=== PATIENT | male | born 1980 | race Caucasian/White ===

== ENCOUNTER 2023-04-27 13:13 | Emergency (ER) | payer OTHER, SELFPAY ==
--- NOTE | ~2023-04-27 | XR_ITS ---
EXAMINATION: XR FOREARM, RIGHT CLINICAL INFORMATION: Pain, hematoma COMPARISON: None available. TECHNIQUE: AP and lateral views of the right forearm were obtained. FINDINGS: The bones and soft tissues are normal. No fracture. Imaged portions of the elbow and wrist are unremarkable. XR/XR forearm RT 2V IMPRESSION: Normal right forearm.
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
[2023-04-27 13:19] VITALS: BP 139/79; PULSE 78; RESP 16; TEMP 36.2; O2SAT 96; BMI 24.4
[2023-04-27 14:20] VITALS: BP 132/70; PULSE 67; RESP 17; O2SAT 97
== END 2023-04-27 14:22 | disposition home or self-care (01) ==
PROVIDERS: Emergency Provider Emergency Medicine
DX: S50.11XA Contusion of right forearm, initial encounter (principal); M79.631 Pain in right forearm; V49.3XXA Car occupant (driver) (passenger) injured in unspecified nontraffic accident, initial encounter; Y93.9 Activity, unspecified; Y92.410 Unspecified street and highway as the place of occurrence of the external cause; Y99.9 Unspecified external cause status
CPT/HCPCS: 73090; 99283; 99284

== ENCOUNTER → 2023-04-28 07:36 | Outpatient (BNVA) | payer OTHER, SELFPAY | PROVIDERS: Visit Provider Internal Medicine | DX: S50.11XA Contusion of right forearm, initial encounter (principal); S43.401A Unspecified sprain of right shoulder joint, initial encounter; V89.0XXA Person injured in unspecified motor-vehicle accident, nontraffic, initial encounter | CPT/HCPCS: 99203 ==

== ENCOUNTER → 2023-05-02 09:05 | Outpatient (BNVA) | payer OTHER, SELFPAY | PROVIDERS: Visit Provider Physician Assistant Medical | DX: S50.11XA Contusion of right forearm, initial encounter (principal); S43.401A Unspecified sprain of right shoulder joint, initial encounter; V89.0XXA Person injured in unspecified motor-vehicle accident, nontraffic, initial encounter | CPT/HCPCS: 99213 ==

== ENCOUNTER → 2023-05-08 12:57 | Outpatient (BNVA) | payer OTHER, SELFPAY | PROVIDERS: PCP Family Medicine; Visit Provider Physician Assistant Medical | DX: S50.11XD Contusion of right forearm, subsequent encounter (principal); S43.401D Unspecified sprain of right shoulder joint, subsequent encounter; V89.0XXD Person injured in unspecified motor-vehicle accident, nontraffic, subsequent encounter | CPT/HCPCS: 99213 ==

== ENCOUNTER → 2023-05-15 12:59 | Outpatient (BNVA) | payer OTHER, SELFPAY | PROVIDERS: PCP Family Medicine; Visit Provider Physician Assistant Medical | DX: S50.11XD Contusion of right forearm, subsequent encounter (principal); S46.911D Strain of unspecified muscle, fascia and tendon at shoulder and upper arm level, right arm, subsequent encounter; V89.0XXD Person injured in unspecified motor-vehicle accident, nontraffic, subsequent encounter | CPT/HCPCS: 99213 ==

== ENCOUNTER → 2023-05-23 10:37 | Outpatient (BNVA) | payer OTHER, SELFPAY | PROVIDERS: PCP Family Medicine; Visit Provider Physician Assistant Medical | DX: S50.11XD Contusion of right forearm, subsequent encounter (principal); S46.911D Strain of unspecified muscle, fascia and tendon at shoulder and upper arm level, right arm, subsequent encounter; V89.0XXD Person injured in unspecified motor-vehicle accident, nontraffic, subsequent encounter | CPT/HCPCS: 99213 ==

== ENCOUNTER 2023-06-02 09:00 | Outpatient (RCR) | payer OTHER, SELFPAY ==
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
--- NOTE | 2023-06-30 16:21 | MHC.PT.DC ---
[facility] [place] [facility] [place] [facility] [place] [facility] [address] Adam Katz [address] [phone] F: [phone] F: [phone] F: [phone] F: [phone] Physical Therapy Discharge Report Diagnosis: R SHOULDER SPRAIN Date of Surgery: NA Date of Evaluation: 05/14/23 Date of Discharge: 06/30/23 Treatments to Date: 6 Cancellations to Date: No Shows to Date: Discharge Status: Improved Function Independent with HEP Patient Elected to Stop Discharge Summary: Pt SEEN FOR INIT EVAL AND 5 FU VISITS. LAST SEEN ON 06/02/23 BY TOMAS HANSON PT,DPT. PER ASSESSMENT FROM THAT NOTE Challenged with quadriped position. Pt expressing sx posterior RTC insertion, expresses he is feeling improvement, still sore in the back posterior RTC insertion at times. Weak triceps and scapular retractors. NO FURTHER APPTS SCHEDULED (?) HAD WC FU ON 06/06 WITH POSSIBLE RTW (?). WILL DC CHART AT THIS TIME SINCE IT HAS BEEN 4WKS SINCE LAST VISIT CHALLENGED WITH WT, CLOSED CHAIN AND OVERHEAD WORK. SHOULD BE ABLE TO RTW AT NEXT WC APPT (06/06) Electronically signed by: ZACK CRUZ PT Please sign and return to therapist. Thank you for your referral.
== END 2023-06-30 16:21 | disposition home or self-care (01) ==
LOC: HO.PTWFD 09:00
PROVIDERS: PCP Family Medicine; Visit Provider Physician Assistant Medical
DX: S43.401D Unspecified sprain of right shoulder joint, subsequent encounter (principal)
CPT/HCPCS: 97110; 97140; 97161; 97535

== ENCOUNTER → 2023-06-06 10:36 | Outpatient (BNVA) | payer OTHER, SELFPAY | PROVIDERS: PCP Family Medicine; Visit Provider Physician Assistant Medical | DX: S50.11XD Contusion of right forearm, subsequent encounter (principal); S43.401D Unspecified sprain of right shoulder joint, subsequent encounter; V89.0XXD Person injured in unspecified motor-vehicle accident, nontraffic, subsequent encounter | CPT/HCPCS: 99213 ==

== ENCOUNTER → 2023-10-28 15:07 | Outpatient (BNVA) | payer OTHER, SELFPAY | PROVIDERS: PCP Family Medicine; Visit Provider Physician Assistant Medical | DX: S62.600A Fracture of unspecified phalanx of right index finger, initial encounter for closed fracture (principal); S92.152A Displaced avulsion fracture (chip fracture) of left talus, initial encounter for closed fracture; Y35.891A Legal intervention involving other specified means, law enforcement official injured, initial encounter | CPT/HCPCS: 29130; 29515; 99203 ==

== ENCOUNTER → 2023-10-31 12:46 | Outpatient (BNVA) | payer OTHER, SELFPAY | PROVIDERS: PCP Family Medicine; Visit Provider Physician Assistant | DX: S62.600A Fracture of unspecified phalanx of right index finger, initial encounter for closed fracture (principal); S92.152A Displaced avulsion fracture (chip fracture) of left talus, initial encounter for closed fracture; X58.XXXA Exposure to other specified factors, initial encounter | CPT/HCPCS: 99213 ==

== ENCOUNTER 2023-11-12 08:15 | Outpatient (AMB) | payer OTHER, SELFPAY ==
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
[2023-11-12 08:23] VITALS: BMI 24.4
== END 2023-11-12 09:11 | disposition home or self-care (01) ==
PROVIDERS: PCP Family Medicine; Visit Provider Physician Assistant
DX: S62.600A Fracture of unspecified phalanx of right index finger, initial encounter for closed fracture (principal)
CPT/HCPCS: 99203

== ENCOUNTER → 2023-11-12 08:15 | Outpatient (BNVA) | payer OTHER, SELFPAY | PROVIDERS: PCP Family Medicine; Visit Provider Physician Assistant | DX: S62.600A Fracture of unspecified phalanx of right index finger, initial encounter for closed fracture (principal) | CPT/HCPCS: 99202 ==

== ENCOUNTER 2023-11-14 10:38 | Outpatient (REF) | payer OTHER, SELFPAY ==
--- NOTE | ~2023-11-14 | XR_ITS ---
EXAMINATION: XR HAND, RIGHT CLINICAL INFORMATION: Pain in the right hand COMPARISON: X-ray of the index finger 10/28/2023. TECHNIQUE: PA, lateral, and oblique views of the right hand. FINDINGS: Unchanged minimally displaced intra-articular fracture of the base of the middle phalanx of the PIP joint of the index finger The bones and soft tissues are otherwise normal. No fracture. Alignment is anatomic. Joint spaces are maintained. No erosions or soft tissue calcifications. XR/XR hand RT min 3V IMPRESSION: Unchanged minimally displaced intra-articular fracture of the base of the middle phalanx of the index finger.
== END 2023-11-14 10:39 | disposition home or self-care (01) ==
LOC: HO.HOSX 10:38
PROVIDERS: Visit Provider Physician Assistant
DX: M79.641 Pain in right hand (principal)
CPT/HCPCS: 73130

== ENCOUNTER 2023-11-26 10:11 | Outpatient (AMB) | payer OTHER, SELFPAY ==
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
== END 2023-11-26 10:35 | disposition home or self-care (01) ==
PROVIDERS: PCP Family Medicine; Visit Provider Physician Assistant
DX: S62.600A Fracture of unspecified phalanx of right index finger, initial encounter for closed fracture (principal)
CPT/HCPCS: 99213

== ENCOUNTER → 2023-11-26 10:11 | Outpatient (BNVA) | payer OTHER, SELFPAY | PROVIDERS: PCP Family Medicine; Visit Provider Physician Assistant | DX: S62.600D Fracture of unspecified phalanx of right index finger, subsequent encounter for fracture with routine healing (principal) | CPT/HCPCS: 99212 ==

== ENCOUNTER 2023-12-23 09:41 | Outpatient (AMB) | payer OTHER, SELFPAY ==
--- NOTE | 2023-12-23 09:55 | MHC.OFFVIS ---
Intake Vital Signs 12/23/23 09:57 Height 5 ft 11 in Weight 175 lb BMI 24.4 Intake Visit Reasons: O/V RT index finger ROM check Intake Note: Preston a 43 year old male presents today for a ROM check of right index finger fx s/p work injury, DOI 10/28/23. States he is still working on his ROM and has his last O.T visit in a few days. Allergies No Known Allergies Allergy (Verified 12/23/23 09:56) HPI O/V RT index finger ROM check HPI Details Preston is a 43 year old right hand dominant man who is following up for his right index finger middle phalanx fracture at the volar radial base of the middle phalanx. DOI: 10/28/23. 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 He says he is doing well and has been attending OT as well as performing at-home exercises. He has some pain when touching his finger or when using it for some activities, such as changing his bedding. He says he was wearing a finger splint for ~2 weeks following his DOI. He has an OT appointment for later this afternoon, he says this is his last appointment. He is seen today using crutches. He says with this injury he fractures two ankle bones & tore a tendon. 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 Review of Systems Const All systems reviewed & are unremarkable except as noted in HPI and below Physical Exam Vital Signs: BMI result Body Mass Index 24.4 Const General: cooperative, healthy appearing and no acute distress Orientation/consciousness: patient oriented x3 HEENT Head: Yes normocephalic and Yes atraumatic Eyes EOM: EOMs intact bilaterally Resp Effort & Inspection: normal respiratory effort and able to speak in complete sentences Cardio Jugular venous distension: no JVD Skin General skin exam: turgor normal Rashes: no rashes Neuro General: patient oriented x3 Extrem Other: Evaluation of Right Upper Extremity: The patient is alert, oriented, and in no acute distress Regarding the right index finger he no longer has any swelling or ecchymosis. He has full active extension of the digit, though tends to not hold it extended against resistance with full strength. When flexing to a fist he demonstrates that he initially can only get the fingertips to perhaps 2 cm from his palm. With encouragement he was able to actively bring the tip of his index finger to his palm. When palpating his finger he tended to flinch a pull away including when I was palpating more proximally over the distal aspect of the proximal phalanx. The fracture is more distally over the base of the middle phalanx. The PIP joint is stable on exam. No swelling and active full range of motion of the PIP joint Radiographs: 3 views of the right hand, with attention to the index finger, were taken and viewed by me today in clinic. They show a right index finger middle phalanx fracture, volar radial, non-displaced with satisfactory fracture alignment and good evidence of interval bony healing. Psych Appearance: grossly normal Affect: normal affect Attitude: cooperative Office Procedures Fracture Care Details: Fracture care if it was not already build for this fracture right index finger middle phalanx [place] [id number] Fracture Billing Code: Fracture Billing Code Assessment & Plan Assessment & Plan (1) Fracture of middle phalanx of right index finger: Code(s): S62.620A - Displaced fracture of middle phalanx of right index finger, initial encounter for closed fracture Plan Assessment & Plan: 1. Right index finger middle phalanx fracture, volar radial, non-displaced DOI: 10/28/23 This is a work-related injury I educated him about this condition This fracture has gone on to heal well. 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 He will perform ROM exercises at home, and work on desensitization of his finger He should begin to use his hand for more normal activities. He is to avoid any impact type activities, including discharging a firearm. he will work on increasing his weight limit, as tolerated. 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 In regards to his hand, he was given a note to return to work on light duty, with a 10lb weight limit. He may return to calisthenic exercises at this time, no discharging of firearms until his next appointment. He is currently out of work due to an ankle fracture as well, which is being managed by [facility]. RTW status to be determined. He will follow up in 4 weeks, anticipate return to full duty at that time. Scribed for Amber Melvin MD by Trell Gotti, bacteriologist medical, on 12/23/23 at 10:35 AM, EST. Orders: Orders XR hand RT min 3V Today M79.641 - Pain in right hand OT Evaluation and Treatment Today S62.620A - Displaced fracture of middle phalanx of right index finger, initial encounter for closed fracture Coding Level of Care Code Global (97131) Diagnoses Fracture of middle phalanx of right index finger S62.620A CPT Codes Fracture Care - Fracture Billing Code: Fracture Billing Code ([id number])
[2023-12-23 09:57] VITALS: BMI 24.4
== END 2023-12-23 11:25 | disposition home or self-care (01) ==
PROVIDERS: PCP Family Medicine; Visit Provider Orthopaedic Surgery
DX: S62.620A Displaced fracture of middle phalanx of right index finger, initial encounter for closed fracture (principal)
CPT/HCPCS: 99213

== ENCOUNTER 2023-12-23 09:41 | Outpatient (REF) | payer OTHER, SELFPAY ==
--- NOTE | ~2023-12-23 | XR_ITS ---
EXAMINATION: XR HAND, RIGHT CLINICAL INFORMATION: Pain in second digit right hand, attention index finger PIP. COMPARISON: 11/12/2023 right hand, 10/28/2023 right finger. TECHNIQUE: PA, lateral, and oblique views of the right hand. FINDINGS: Redemonstration of minimally displaced intra-articular fracture of the base of the middle phalanx of the PIP joint of the second digit. Moderate associated soft tissue swelling. Mild degenerative changes in the first carpometacarpal joint with joint space narrowing and hypertrophic change. XR/XR hand RT min 3V IMPRESSION: Redemonstration of minimally displaced intra-articular fracture of the base of the middle phalanx of the PIP joint of the second digit.
== END 2023-12-23 09:42 | disposition home or self-care (01) ==
LOC: HO.HOSX 09:41
PROVIDERS: PCP Family Medicine; Visit Provider Orthopaedic Surgery
DX: S62.620A Displaced fracture of middle phalanx of right index finger, initial encounter for closed fracture (principal)
CPT/HCPCS: 73130; 99212

== ENCOUNTER 2024-01-19 13:00 | Outpatient (RCR) | payer OTHER, BC, SELFPAY ==
--- NOTE | 2023-11-20 07:54 | MHC.OT.EP ---
[address] [phone] Occupational Therapy Plan of Care Patient Name: Preston Montenegro Date of Evaluation: 11/19/23 Diagnosis: R IF MIDDLE PHALANX FRACTURE Pain Location: R IF, PIPj DORSAL ASPECT 3/10 AT REST 4-5/10 WITH USE Pain Score: 3 Pain Scale Used: Numeric (0 - 10) Aggravating Factors: EARLY AM UPON WAKING (STIFF), HOLDING COFFEE CUP (ITEMS >3 POUNDS) Alleviating Factors: TAKING IBUPROFEN, DID NOT NOTICE RELIEF WITH HEAT/ICE Assessment: MR MONTENEGRO IS 3 WEEKS, 1 DAY SINCE HE SUSTAINED A VOLAR PLATE INJURY, FRACTURE OF THE MIDDLE PHALANX OF HIS RIGHT INDEX FINGER. HE IS RIGHT HAND DOMINANT AND IS HAVING DIFFICULTIES PERFORMING IADLs AND HOLDING ITEMS. 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 A 57% LIMITATION IS REPORTED PER THE QUICK DASH ASSESSMENT. ONGOING SKILLED OT IS WARRANTED TO ACHIEVE MAXIMUM FUNCTIONAL LEVEL AND ADDRESS WORK CONDITIONING TASKS WHEN APPROPRIATE. Frequency and Duration: The patient will be seen 2X/WEEK FOR 6 WEEKS Short Term Goals: IND HEP IND EDEMA MANAGEMENT STRATEGIES IND USE OF HEAT/ ICE IMPROVE COORDINATION IN R HAND TO FUNCTIONAL LEVEL PER FDT Mcc Goals: R HAND GRASP 40 POUNDS R PIPj TO 95 DEGREES; R DIPj TO 60 DEGREES PERFORM SIMULATED WORK RELATED TASKS WITH <2/10 PAIN QUICK DASH <30% Treatment Plan: Therapeutic Exercise Therapeutic Activity Home Exercise Program Splinting Neuro Re-ed Patient Education Desensitization/Sensory Re-ed Edema Control ADL Training Ultrasound NMES Iontophoresis Paraffin Fluidotherapy MHP Cold Packs Joint Mobilization Soft Tissue Mobilization Kinesiotaping Electronically Signed By: DAPHNE SALMON OTR/L Please Sign and return to therapist. Thank you once again for your referral.
--- NOTE | 2023-12-19 08:01 | MHC.OT.OP ---
[address] [phone] F: [phone] Occupational Therapy Progress Note Patient Name: Preston Montenegro Diagnosis: R IF MIDDLE PHALANX FRACTURE Date of Evaluation: 11/19/23 Treatments to Date: 6 Cancellations to Date: 2 No Shows to Date: 0 Subjective: I CAUGHT ON THE SHEET STRIPPING THE BED. THAT HURT Pain Score: 3 Pain Location: R PIPj OF IF Objective Measures: CIRCUMFERENCE OF IF AT PIPJ: R 6.5 CM, L 6.4 CM IF FLEXION: 90 PIP, 60 DIP FUNCTIONAL DEXTERITY TEST: R 21 SECONDS (FUNCTIONAL) 9 HOLE PEG TEST: 24 SECONDS (FUNCTIONAL) R GRASP 15 POUNDS R LATERAL PINCH 6 POUNDS, 2 PT PINCH 4 POUNDS, 3 PT PINCH 9 POUNDS Status: Progressing Assessment: MR MONTENEGRO HAS SHOWN IMPROVEMENTS IN RIGHT DOMINANT HAND INDEX FINGER S/P MP FX. HE IS SHOWING IMPROVEMENTS IN PAIN, EDEMA, ROM AND DEXTERITY ARE WFL. GOALS MET FOR EDEMA, PAIN , ROM, DEXTERITY. STRENGTH AND LIGHT FUNCTIONAL ACTIVITIES. BEGINNING TO PROGRESS LIGHT RESISTANCE EXERCISE RESPECTING PRECAUTIONS FOR HEALING MP FRACTURE. Pt TO BEGIN TO TRANSITION TO A HOME BASED PROGRAM IN NEXT WEEK SESSIONS. STILL REMAINS OUT OF WORK HE ALSO HAS AN ANKLE INJURY (PT EVAL SCHEDULED FOR 01/05/24). Short Term Goals: IND HEP (MET) IND EDEMA MANAGEMENT STRATEGIES (MET) IND USE OF HEAT/ ICE (MET) IMPROVE COORDINATION IN R HAND TO FUNCTIONAL LEVEL PER FDT (MET) Environmental Air Specialist Goals: R HAND GRASP 40 POUNDS R PIPj TO 95 DEGREES; R DIPj TO 60 DEGREES PERFORM SIMULATED WORK RELATED TASKS WITH <2/10 PAIN QUICK DASH <30% Frequency and Duration: The patient will be seen 2X/WEEK FOR 1 WEEK Treatment Plan: Therapeutic Exercise Therapeutic Activity Home Exercise Program Neuro Re-ed Patient Education Desensitization/Sensory Re-ed ADL Training Ultrasound Paraffin Fluidotherapy MHP Cold Packs Joint Mobilization Soft Tissue Mobilization Kinesiotaping Electronically Signed By: DAPHNE SALMON OTR/L Reviewed/agree with student documentation: N/A Therapist:
--- NOTE | 2024-01-19 13:30 | MHC.OT.DC ---
[address] [phone] F: [phone] Occupational Therapy Discharge Note Patient Name: Preston Montenegro Provider: Octaviano Murcia Diagnosis: R IF MIDDLE PHALANX FRACTURE Date of Evaluation: 11/19/23 Date of Discharge: 01/19/24 Treatments to Date: 9 Cancellations to Date: 2 No Shows to Date: 0 Discharge Status: Achieved Goals Improved Function Independent with HEP Discharge Summary: MR MONTENEGRO HAS PROGRESSED WELL WITH HIS OT RX SESSIONS. HE HAS BEEN ABLE TO MAINTAIN ROM AND IMPROVE STRENGTH DURING TWO WEEK HOLD FROM OT SERVICES. Pt DENIES DIFFICULTIES WITH DAILY ACTIVITIES. PAINFREE. STGs/ LTGs ARE MET. PLAN TO RTW ([employer]) NEXT WEEK. D/C OT SERVICES. Electronically Signed By: DAPHNE SALMON OTR/L Reviewed/agree with student documentation: N/A Therapist: Please Sign and return to therapist, thank you for your referral.
== END 2024-01-19 14:00 | disposition home or self-care (01) ==
LOC: HO.OT 13:00
PROVIDERS: Absent Provider Orthopaedic Surgery; PCP Family Medicine; Visit Provider Physician Assistant
DX: S62.602D Fracture of unspecified phalanx of right middle finger, subsequent encounter for fracture with routine healing (principal)
CPT/HCPCS: 97035; 97110; 97140; 97166; 97530

== ENCOUNTER 2024-01-20 13:26 | Outpatient (AMB) | payer OTHER, SELFPAY ==
--- NOTE | 2024-01-20 13:30 | MHC.OFFVIS ---
Intake Vital Signs 01/20/24 13:35 Height 5 ft 11 in Weight 175 lb BMI 24.4 Intake Visit Reasons: f/u rt index finger Intake Note: Preston a 43 year old male presents today for a ROM check of right index finger fx s/p work injury, DOI 10/28/23. States she has improved since his last visit. Continues to work with O.T. Allergies No Known Allergies Allergy (Verified 01/20/24 13:38) HPI f/u rt index finger HPI Details Preston is a 43 year old right hand dominant man who is following up for his right index finger middle phalanx fracture at the volar radial base of the middle phalanx. DOI: 10/28/23. 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 He says he is doing well and has been attending OT as well as performing at-home exercises. He feels he has been improving in the use of his right hand. He says with this injury he fractured two ankle bones & tore a tendon. He says this has been healing well and he is able to WBAT. He is scheduled for a follow-up at [facility] on 01/27/24 to see if he is cleared to return to active duty. 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 He was able to hook my finger and pull with resistance without pain Fracture site is completely non-tender The PIP joint is stable on exam. No swelling and active full range of motion of the PIP joint Radiographs: 3 views of the right hand, with attention to the index finger, were taken and viewed by me today in clinic. They show a right index finger middle phalanx fracture, volar radial, non-displaced with satisfactory fracture alignment and good evidence of interval bony healing. Assessment & Plan Assessment & Plan (1) Fracture of middle phalanx of right index finger: Code(s): S62.620A - Displaced fracture of middle phalanx of right index finger, initial encounter for closed fracture Plan Assessment & Plan: 1. Right index finger middle phalanx fracture, volar radial, non-displaced DOI: 10/28/23 This is a work-related injury I educated him about this condition This fracture has gone on to heal well. He now has good and full active range of motion He is able to engage in all daily activities without pain He was given a note to return to full duty without restrictions on 01/26/24 He is currently out of work due to an ankle fracture until his next appointment on 01/27/24 with [facility] He can follow up prn Scribed for Amber Melvin MD by Trell Gotti, medical liaison, on 01/20/24 at 1:50 PM, EST. Coding Level of Care Code Global (76524) Diagnoses Fracture of middle phalanx of right index finger S62.620A
[2024-01-20 13:35] VITALS: BMI 24.4
== END 2024-01-20 13:52 | disposition home or self-care (01) ==
PROVIDERS: PCP Family Medicine; Visit Provider Orthopaedic Surgery
DX: S62.620A Displaced fracture of middle phalanx of right index finger, initial encounter for closed fracture (principal)
CPT/HCPCS: 99213

== ENCOUNTER → 2024-01-20 13:26 | Outpatient (BNVA) | payer OTHER, SELFPAY | PROVIDERS: PCP Family Medicine; Visit Provider Orthopaedic Surgery | DX: S62.620D Displaced fracture of middle phalanx of right index finger, subsequent encounter for fracture with routine healing (principal) | CPT/HCPCS: 99212 ==

== ENCOUNTER 2024-01-22 11:00 | Outpatient (RCR) | payer OTHER, BC, SELFPAY | END 2024-03-22 15:19 | disposition home or self-care (01) | LOC: HO.PT 11:00 | PROVIDERS: PCP Family Medicine; Visit Provider Physician Assistant | DX: S92.902D Unspecified fracture of left foot, subsequent encounter for fracture with routine healing (principal) | CPT/HCPCS: 97110; 97112; 97116; 97140; 97161; 97530 ==

== ENCOUNTER 2025-10-07 23:38 | Emergency (ER) | payer OTHER, SELFPAY ==
--- NOTE | ~2025-10-07 | XR_ITS ---
CLINICAL HISTORY: contusion pain with palpation mid humerus 2 view left humerus Comparison: None provided Findings: No fractures or dislocations. No significant arthritic change. No radiopaque foreign body. IMPRESSION: 1. Normal left humerus This document has been electronically signed by: Adeel Keys MD on 10/08/2025 01:38:05
[2025-10-07 23:48] VITALS: BP 117/71; PULSE 73; RESP 20; TEMP 36.3; O2SAT 96; BMI 24.4
--- OUTSIDE RECORDS SUMMARY | 2025-10-08 00:26 | XMS_ITS | Clinical Summary ---
Author Organization [facility] Address [address] [place] [phone] Phone Care Team Providers Care Job Counselor Name Role Phone Aziza Herman MD Primary Care Provider Allergies No known active allergies Medications oxycodone HCl/acetaminoph en (OXYCODONE-ACET AMINOPHEN ORAL) Take by mouth. Active PREDNISOLONE ACETATE ORAL Take by mouth. Ac tive Medication-Free Text muscle relaxer Activ e oxyCODONE-aceta minophen (PERCOCET) 5-325 mg per tablet Take 1 tablet by mouth every 6 (six) hours as needed for pain (specific location in comments). Partial fill ok 6 tablet 9 Active diclofenac sodium (VOLTAREN) 1 % Gel Apply 2 g topically 4 (four) times a day. 1 Tube 9 Active Active Problems No known active problems Social History Tobacco Use Types Packs/Day Years Used Date Smoking Tobacco: Never Smokeless Tobacco: Never Alcohol Use Standard Drinks/Week Comments Yes 0 (1 standard drink = 0.6 oz pur e alcohol) socially Education Answer Date Recorded Are you interested in more education? Not on nava e 02/28/2023 Are you concerned about learning? Not on file 02/28/2023 No 02/28/2023 No 02/28/2023 Digital Access Answer Date Recorded No 03/29/2023 No 03/29/2023 No 03/29/2023 Reliable internet access at home? Not on file 03/29/2023 Device with a working camera? Not on file Sex and Gender Information Value Date Recorded Sex Assigned at Male 10/15/2019 8:19 AM EST Legal Sex Male 8:02 AM EST Gender Identity Male 10/15/2019 8:19 AM EST Sexual Orientation Straight 10/15/2019 8: 19 AM EST Last Filed Vital Signs Vital Sign Reading Time Taken Comments Blood Pressure 143/85 10/15/2019 8:16 AM EST Pulse 84 10/15/2019 8:16 AM EST Temperature 36.7 C (98.1 F) 10/15/2019 8:16 AM EST Respiratory Rate 17 10/15/2019 8:16 AM EST Oxygen Saturation 98% 10/15/2019 8:16 AM EST Inhaled Oxygen Concentration - - Weight 75.8 kg (167 lb) 10/15/2019 10:43 AM EST Height 180.3 cm (5' 11 ) 10/15/2019 10:43 AM EST Body Mass Index 23.29 10/15/2019 10:43 AM EST Plan of Treatment Health Maintenance Due Date Last Done Comments Adult Td,Tdap Booster 1981 LIPID PANEL 1981 DEPRESSION SCREENING 1993 HEPATITIS C SCREENING 1999 HIV ONE-TIME SCREENING (18-6 5 YEARS) 1999 INFLUENZA VACCINE (#1) 2025 COVID-19 VACCINE (3 2024-2 6 season) 2025 12/22/2020, 11/24/2020 SMOKING STATUS SCREENING (On ce After 26 Yrs) Completed 10/15/2019 HEPATITIS A VACCINES Aged Out No long er eligible based on patient's age to complete this topic HIB VACCINES Aged Out No longer eligi ble based on patient's age to complete this topic MENINGOCOCCAL VACCINES (ACWY) Aged Out No longer eligible based on patient's age to complete this topic MENINGOCOCCAL VACCINES (B) Aged Out N o longer eligible based on patient's age to complete this topic PNEUMOCOCCAL VACCINES (0-49 years) Aged Out No longer eligible b ased on patient's age to complete this topic Medical Devices Not on file Insurance [employer] [place] HMO POS Care Teams Job Counselor Relationship Specialty Start Date End Date Aziza Herman MD [email or web address] PCP - General Family Medicine 10/15/19 Additional Source Comments The information contained in this document represents components of the legal health record. It is not the complete legal health record.[facility]
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
[2025-10-08 01:32] VITALS: BP 131/82; PULSE 71; RESP 16; TEMP 36.4; O2SAT 97
== END 2025-10-08 01:33 | disposition home or self-care (01) ==
PROVIDERS: Emergency Provider Student in an Organized Health Care Education/Training Program; PCP Pediatrics
DX: S40.022A Contusion of left upper arm, initial encounter (principal); M79.602 Pain in left arm; M79.642 Pain in left hand; Y29.XXXA Contact with blunt object, undetermined intent, initial encounter; Y93.9 Activity, unspecified; Y92.9 Unspecified place or not applicable; Y99.0 Civilian activity done for income or pay
CPT/HCPCS: 73060; 99283

== ENCOUNTER → 2025-10-08 00:33 | Outpatient (BNV) | payer OTHER, SELFPAY | PROVIDERS: Emergency Provider Student in an Organized Health Care Education/Training Program; PCP Pediatrics; Visit Provider Radiology Diagnostic Radiology | DX: S40.022A Contusion of left upper arm, initial encounter (principal) | CPT/HCPCS: 73060 ==

== ENCOUNTER → 2025-10-10 08:47 | Outpatient (BNVA) | payer OTHER, SELFPAY | PROVIDERS: PCP Pediatrics; Visit Provider Physician Assistant Medical | DX: S50.12XA Contusion of left forearm, initial encounter (principal); Y04.2XXA Assault by strike against or bumped into by another person, initial encounter; Z02.79 Encounter for issue of other medical certificate | CPT/HCPCS: 99202 ==